=== PATIENT | female | born 1995 | race Caucasian/White ===

== ENCOUNTER 2017-08-10 15:24 | Inpatient (IN) | payer OTHER ==
[~2017-08-10] VITALS: Ht 167.6 cm; Wt 57.8 kg
[2017-08-10 16:27] LABS: HEMATOCRIT 43.1 % (37-47); HEMOGLOBIN 15.3 g/dL (12.0-16.0); MEAN CELL VOLUME 86.5 fL (80-100); MEAN CORPUSCULAR HEMOGLOBIN 30.7 pg (25-34); MEAN CORPUSCULAR HGB CONC 35.5 g/dl (32-36); MEAN PLATELET VOLUME 9.7 fL (7.4-10.4); PLATELET COUNT 333 K/uL (130-400); RED CELL DISTRIBUTION WIDTH CV 12.3 % (11.5-14.5); RED CELL DISTRIBUTION WIDTH SD 39.4 fL (36.4-46.3); WHITE BLOOD COUNT 12.66 K/uL (4.8-10.8)
--- NOTE | 2017-08-10 16:39 | Pharmacy Progress Note ---
ED Pharmacist Progress Note Date of Service: Aug 10, 2017. Spoke with poison control regarding patient- ingestion of estimated maximum 188 tablets of 200 mg Ibuprofen and 1/2 a bottle of unknown size nyquil. Estimated patient weight at time was 60kg. Poison control recommendations/possible reactions included: Ibuprofen: GI upset/bleeding, seizure, coma, hypotension, metabolic acidosis. Treatment is supportive care with benzodiazepines for seizure. Nyquil adverse effects include anticholinergic effects: agitation/ confusion/tremors/flushing/dry mucus membranes, tachycardia,sedation. Recommended benzodiazepines for tachycardia. Recommended ASA/Tylenol/Alcohol level at 1800- 4 hours post ingestion and EKG. Talked with patient who did not know the bottle size, said it might be "medium" and wasn't huge. Estimate maximum consumption of 12 oz. bottle of nyquil would be 7.67 gm of acetaminophen, 6 oz. would be 3.835 gm.
[2017-08-10] MEDS ORDERED: IBUP-1050 PO (16:45)
[2017-08-10] MEDS ORDERED: MULT-513 PO (16:45)
[2017-08-10 16:47] LABS: ALBUMIN 4.4 gm/dl (3.4-5.0); CALCIUM 9.1 mg/dl (8.5-10.1); CREATININE 1.01 mg/dl (0.60-1.20)
[2017-08-10 16:58] LABS: TOTAL PROTEIN 7.8 gm/dl (6.4-8.2)
[2017-08-10] MEDS ORDERED: LORAZEPAM 2 MG/ML 1 ML VIAL IV STA (17:54)
[2017-08-10] MEDS ORDERED: SODIUM CHLORIDE 0.9% 1000ML 1,000 ML IV ONE (18:00)
[2017-08-10] MEDS ORDERED: ONDANSETRON INJ 2 MG/ML 2 ML VIAL IV PRN (18:00)
[2017-08-10] MEDS ORDERED: POTASSIUM CHLORIDE 20 MEQ TABCR PO STA (18:07)
[2017-08-10] MEDS ORDERED: PATIENT'S ALLERGY INFO NEEDS ENTERED SCH (18:15)
--- NOTE | 2017-08-10 18:25 | History and Physical ---
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 She reports taking ibuprofen and Nyquil. 188 tablets of 200mg ibuprofen and half a bottle of Nyquil. She recently had an medical on /Thursday and was feeling down about that. She has also been having some relationship problems. She was alone when she took the overdose in her apartment. She called her boyfriend's flat mate who alerted the boyfriend who went round her apartment and called the client coordinator. She admits trying to kill herself. She regrets her decision and doesn't think she will do it again. She reports currently feeling not quite her normal self and agitated. Past Medical/Surgical History Medical Problems: No past medical history Social History Smoking Status: Never Smoker Smokeless Tobacco Use: No Alcohol Use: heavy (3-5 times/week, approximately 6 pack/beer each time) Drug Use: marijuana (smokes 2/week) Marital Status: single Housing status: lives with friends Occupational Status: [employer] Allergies Coded Allergies: No Known Allergies (Unverified , 08/10/17) Home Medications Scheduled Ibuprofen (Advil), 400 MG PO PRN Multivitamins/Minerals (Mvi With Minerals), 1 TAB PO DAILY Review of Systems All systems reviewed and otherwise negative other than HPI Physical Exam Vital Signs Date Time Temp Pulse Resp B/P (MAP) Pulse Ox O2 Delivery O2 Flow Rate FiO2 08/10/17 17:30 126 22 134/72 97 08/10/17 17:01 130 20 128/78 98 Room Air 08/10/17 16:30 110 21 122/78 98 08/10/17 16:13 131 08/10/17 16:07 125 20 134/78 08/10/17 15:25 37.1 114 20 127/85 98 Room Air General Appearance: WD/WN, no apparent distress Head: normocephalic, atraumatic Eyes: normal inspection, PERRL, EOMI ENT: + pertinent finding (dry mucus membranes) Neck: no adenopathy, trachea midline Respiratory/Chest: lungs clear, normal breath sounds, no respiratory distress, no accessory muscle use Cardiovascular: no murmur, + tachycardia (regular rhythm) Abdomen/GI: normal bowel sounds, non tender, soft Extremities/Musculoskelatal: normal capillary refill, no pedal edema 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, no motor/sensory deficits, alert, oriented x 3, + depressed affect Skin: normal color, warm/dry, no rash Diagnostics Laboratory Results Results Past 24 Hours Test 08/10/17 16:06 08/10/17 16:08 08/10/17 17:49 Range/Units Urine Color YELLOW Urine Appearance CLEAR CLEAR Urine pH 6.5 4.5-7.5 Urine Specific [place] 1.008 1.000-1.030 Urine Protein NEG NEG Urine Glucose (UA) NEG NEG Urine Ketones NEG NEG Urine Occult Blood NEG NEG Urine Nitrite NEG NEG Urine Bilirubin NEG NEG Urine Urobilinogen NEG NEG Urine Leukocyte Esterase NEG NEG Urine Test POS NEG White Blood Count 12.66 4.8-10.8 K/uL Red Blood Count 4.98 4.2-5.4 M/uL Hemoglobin 15.3 12.0-16.0 g/dL Hematocrit 43.1 37-47 % Mean Corpuscular Volume 86.5 80-100 fL Mean Corpuscular Hemoglobin 30.7 25-34 pg Mean Corpuscular Hemoglobin Concent 35.5 32-36 g/dl RDW Standard Deviation 39.4 36.4-46.3 fL RDW Coefficient of Variation 12.3 11.5-14.5 % Platelet Count 333 130-400 K/uL Mean Platelet Volume 9.7 7.4-10.4 fL Sodium Level 140 136-145 mmol/L Potassium Level 3.0 3.5-5.1 mmol/L Chloride Level 108 98-107 mmol/L Carbon Dioxide Level 23 21-32 mmol/L Anion Gap 10.0 3-11 mmol/L Blood Urea Nitrogen 9 7-18 mg/dl Creatinine 1.01 0.60-1.20 mg/dl Est Creatinine Clear Calc Drug Dose 78.4 ml/min Estimated GFR () 92.2 Estimated GFR (Non- 79.5 BUN/Creatinine Ratio 8.9 10-20 Random Glucose 81 70-99 mg/dl Calcium Level 9.1 8.5-10.1 mg/dl Total Bilirubin 0.6 0.2-1 mg/dl Direct Bilirubin 0.1 0-0.2 mg/dl Aspartate Amino Transf (AST/SGOT) 14 15-37 U/L Alanine Aminotransferase (ALT/SGPT) 15 12-78 U/L Alkaline Phosphatase 40 45-117 U/L Total Protein 7.8 6.4-8.2 gm/dl Albumin 4.4 3.4-5.0 gm/dl Thyroid Stimulating Hormone (TSH) 1.130 0.300-4.500 uIu/ml Free Thyroxine 1.22 0.80-1.60 ng/dl Salicylates Level < 1.7 2.8-20 mg/dl Acetaminophen Level 57 10-30 ug/ml Ethyl Alcohol mg/dL 54.7 0-3 mg/dl EKG Sinus tachycardia T wave flattening - inferior and anterolateral leads QTc normal No previous ECGs available Impression Assessment and Plan 22 year old college student presents to the ER with multi drug overdose Multidrug overdose - no underlying mental illness known - consult psychiatry Ibuprofen overdose - Assess for GI upset/bleeding, seizure, coma, hypotension, metabolic acidosis. - Treatment is supportive care with benzodiazepines for seizure as per poison control Dextromethorphan, doxylamine and pseudoephedrine overdose (Nyquil) - anticholinergic effects: agitation/confusion/tremors/flushing/dry mucus membranes, tachycardia,sedation - Recommended benzodiazepines for tachycardia. Acetaminophen overdose - retake level now (4 hours) - 54, reliable history with ingestion at 13:50-14: 00 - called poison control with 4 hour acetaminophen level - no need to recheck, not for NAC Recent 8 week medical with mifepristone and misoprostol - US pelvis to check for retained products - serum quant B-HCG VTE Prophylaxis - LINDA - no chemical prophylaxis as very low risk I personally interviewed and examined the patient. I agree with history of present illness and physical exam mentioned above, I also performed my own history taking and examination. Past medical history and review of system has been obtained by myself I reviewed all pertinent labs and studies Reviewed current medications I discussed and formulated of the assessment and plan mentioned above. Please refer to the Summary mentioned below. 22 years old female with no previous past medical history. Has been having a lot of social problems lately. Broke up with her boyfriend and had an . Also some other problems with family. Today she decided to end her life. She ingested large amount of ibuprofen, and drank half a bottle of NyQuil. Also took some vodka as per patient she took a very small amount of vodka. Her ex- boyfriend came to her house and she admitted to him that she did that. He called 911 and brought her to the ED. Currently she had no thoughts to hurt herself or others she regrets what she did No previous history of psychiatric illness no previous suicide attempts Review of system is completely negative and physical exam is also was normal As per poison control recommendation patient does not require N-acetylcysteine as NyQuil does not have enough Tylenol to cause significant toxicity, Tylenol level in her blood was 57, repeat Tylenol level 2 hours later was 54 which is trending down. She was started on PPI and IV fluid hydration. Benzodiazepines for her tachycardia/histamine jackelyn toxicity. QTc prolongation will be monitored. Psychiatric consulted. Placed on telemetry and psychiatry precautions General Appearance: not in acute distress Eyes: normal Sclerae, extraocular muscle intact ENT: hearing grossly normal Neck: supple Respiratory/Chest: normal air entry bilateral ,no respiratory distress, no accessory muscle use Cardiovascular: regular rate, rhythm, no murmur Abdomen: non tender, soft, no masses Extremities: no edema musculoskeletal: no significant swelling or inflammation in any joint Neurologic/Psychiatric: Awake alert oriented times place and person moves all extremities sensation intact cranial nerves II-12 appear to be intact Skin: normal color, warm/dry, no rash Rosaline Rush MD, [facility] hospitalist group Resuscitation Status Full VTE Prophylaxis Will order VTE Prophylaxis: Yes Resident Tracking Resident Involvement: Resident Care Provided Care Provided: Adult Hospital Medicine
[2017-08-10] MEDS ORDERED: PANTOprazole INJ 40 MG in SYRINGE 0 ML IV ONE (19:45)
--- NOTE | 2017-08-10 19:47 | EMERGENCY ROOM VISIT NOTE ---
History Report prepared by Víctor: Pardeep Quiroz Under the Supervision of: Dr. Isaac Jack M.D. First contact with patient: 15:26 Stated Complaint: OVERDOSE History of Present Illness The patient is a 22 year old female who presents to the Emergency Room with complaints of a sudden overdose occurring around 1400 today. Per the nursing staff, the patient took around 188 pills of ibuprofen, and the patient states that she additionally took a little less than half of a bottle of NyQuil. She states the ibuprofen bottle was almost full and there are only 12 tablets left of the 200 hour in the bottle. The patient states that she was doing this to kill herself. She states that she had an three days ago, and she was feeling depressed about this. The patient called her boyfriend who then called the local telephone operator. The reports that she has no history of anxiety or depression, and she is not currently on any medications. She has never tried to hurt herself in the past. The patient denies any abdominal pain, nausea, and dizziness. She states that her vaginal bleeding stopped yesterday, and she is not having any pelvic pain. The patient denies any recent fevers. Source of History: patient, nursing staff Onset: 1400 Position: other (global) Quality: other (overdose) Timing: other (sudden) Associated Symptoms: No fevers, No nausea, No abdominal pain Review of Systems See HPI for pertinent positives & negatives. A total of 10 systems reviewed and were otherwise negative. Past Medical & Surgical Medical Problems: (1) Acetaminophen overdose (2) Diphenhydramine overdose (3) Ibuprofen overdose Social History Marital Status: in relationship Occupation Status: [employer] Current/Historical Medications Scheduled Ibuprofen (Advil), 400 MG PO PRN Multivitamins/Minerals (Mvi With Minerals), 1 TAB PO DAILY Physical Exam Vital Signs Date Time Temp Pulse Resp B/P (MAP) Pulse Ox O2 Delivery O2 Flow Rate FiO2 08/10/17 19:13 124 20 119/73 95 08/10/17 17:30 126 22 134/72 97 08/10/17 17:01 130 20 128/78 98 Room Air 08/10/17 16:30 110 21 122/78 98 08/10/17 16:13 131 08/10/17 16:07 125 20 134/78 08/10/17 15:25 37.1 114 20 127/85 98 Room Air Physical Exam Constitutional: Vital signs reviewed. Eyes: Pupils are equal round reactive to light. Conjunctiva are noninjected. ENT: Pharynx is clear without erythema or exudate. Mucous membranes are moist. Neck supple without meningeal signs. Respiratory: Clear to auscultation bilaterally. Breath sounds are equal bilaterally. Cardiovascular: Slightly tachycardic rate and regular rhythm. No rubs or gallops. GI: Soft, nondistended and nontender. Bowel sounds are present. Musculoskeletal: No peripheral edema. No lacerations to the wrists. Integumentary: No cyanosis. Neurological: The patient is awake and alert. No focal deficits. Psychiatric: Guarded affect. Anxious appearing. Medical Decision & Procedures Laboratory Results 08/10/17 16:08 08/10/17 16:08 Test 08/10/17 16:06 08/10/17 16:08 08/10/17 17:49 Urine Color YELLOW Urine Appearance CLEAR (CLEAR) Urine pH 6.5 (4.5-7.5) Urine Specific [place] 1.008 (1.000-1.030) Urine Protein NEG (NEG) Urine Glucose (UA) NEG (NEG) Urine Ketones NEG (NEG) Urine Occult Blood NEG (NEG) Urine Nitrite NEG (NEG) Urine Bilirubin NEG (NEG) Urine Urobilinogen NEG (NEG) Urine Leukocyte Esterase NEG (NEG) Urine Test POS (NEG) Urine Opiates Screen NEG (NEG) Urine Methadone, Qualitative NEG (NEG) Urine Barbiturates NEG (NEG) Urine Phencyclidine (PCP) Level NEG (NEG) Ur Amphetamine/Methamphetamine NEG (NEG) MDMA (Ecstasy) Screen NEG (NEG) Urine Benzodiazepines Screen NEG (NEG) Urine Cocaine Metabolite NEG (NEG) Urine Marijuana (THC) NEG (NEG) Red Blood Count 4.98 M/uL (4.2-5.4) Mean Corpuscular Volume 86.5 fL (80-100) Mean Corpuscular Hemoglobin 30.7 pg (25-34) Mean Corpuscular Hemoglobin Concent 35.5 g/dl (32-36) RDW Standard Deviation 39.4 fL (36.4-46.3) RDW Coefficient of Variation 12.3 % (11.5-14.5) Mean Platelet Volume 9.7 fL (7.4-10.4) Anion Gap 10.0 mmol/L (3-11) Est Creatinine Clear Calc Drug Dose 78.4 ml/min Estimated GFR () 92.2 Estimated GFR (Non- 79.5 BUN/Creatinine Ratio 8.9 (10-20) Calcium Level 9.1 mg/dl (8.5-10.1) Total Bilirubin 0.6 mg/dl (0.2-1) Direct Bilirubin 0.1 mg/dl (0-0.2) Aspartate Amino Transf (AST/SGOT) 14 U/L (15-37) Alanine Aminotransferase (ALT/SGPT) 15 U/L (12-78) Alkaline Phosphatase 40 U/L (45-117) Total Protein 7.8 gm/dl (6.4-8.2) Albumin 4.4 gm/dl (3.4-5.0) Thyroid Stimulating Hormone (TSH) 1.130 uIu/ml (0.300-4.500) Free Thyroxine 1.22 ng/dl (0.80-1.60) Salicylates Level < 1.7 mg/dl (2.8-20) Ethyl Alcohol mg/dL 54.7 mg/dl (0-3) Prothrombin Time 10.7 SECONDS (9.0-12.0) Prothromb Time International Ratio 1.0 (0.9-1.1) Activated Partial Thromboplast Time 22.0 SECONDS (21.0-31.0) Partial Thromboplastin Ratio 0.8 Acetaminophen Level 54 ug/ml (10-30) Laboratory results as reviewed by me. Medications Administered Medications (Trade) Dose Ordered Sig/Jennifer Route Start Time Stop Time Status Last Admin Dose Admin Sodium Chloride 1,000 ml @ 999 mls/hr Q1H1M ONCE IV 08/10/17 18:00 08/10/17 19:00 DC 08/10/17 18:00 999 MLS/HR Lorazepam (Ativan Inj) 1 mg NOW STAT IV 08/10/17 17:54 08/10/17 18:14 DC 08/10/17 17:54 1 MG Potassium Chloride (Klor-Con Tab) 20 meq NOW STAT PO 08/10/17 18:07 08/10/17 18:14 DC 08/10/17 18:07 20 MEQ ECG Per My Interpretation Indication: other (overdose) Rate (beats per minute): 113 Rhythm: sinus tachycardia Findings: other (QRS is 84ms, no QT prolongation, limited interpretation due to motion artifact.) ED Course 1526: The patient was evaluated in room A5. A complete history and physical exam was performed. 1544: The patient's casew was discussed poison control by the ED pharmacist. 1624: I reevaluated the patient, and she is feeling a little sleepy now, and she is still tachycardic. 1713: I spoke with Dr. Daniel JARAMILLO Hospitalist. We discussed the patient and her results. The patient will be further evaluated by the hospitalist. Medical Decision This is a 22-year-old female who presents with an intentional overdose on NyQuil and ibuprofen. I did perform a limited focused review of portions of the patient's old chart on the electronic medical record. The patient has no prior visits. I did evaluate the patient as noted above. IV access was established. The patient was placed on a continuous utility bill complaints investigator. I did order and personally review the patient's 12-lead EKG as described above. There is no evidence of widening of the QRS or prolongation of the QT interval. Urine is positive but the patient just recently had a . I did order and review the patient's blood work as noted in the electronic medical record. Acetaminophen level is elevated at 57. A repeat 4 hour level is coming down. Poison control was consulted. They did recommend observation for potential seizures and other potential adverse effects. No decontamination was indicated or NAC. I did reassess the patient. She is tachycardic and sleepy but otherwise has no complaints. I did recommend hospitalization. I did discuss case with the hospitalist and field nurse case manager. Medication Reconcilliation Current Medication List: was personally reviewed by me Blood Pressure Screening Patient's blood pressure: Elevated blood pressure Blood pressure disposition: Elevated BP felt to be situational Consults Time Called: 1651 Consulting Physician: Dr. Daniel JARAMILLO Hospitalist Returned Call: [address] Daniel JARAMILLO Hospitalist. We discussed the patient and her results. The patient will be further evaluated by the hospitalist. Impression Primary Impression: Intentional drug overdose Additional Impression: Hypokalemia Scribe Attestation The scribe's documentation has been prepared under my direct and personally reviewed by me in its entirety. I confirm that the note above accurately reflects all work, treatment, procedures, and medical decision making performed by me. Departure Information Dispostion Being Evaluated By Hospitalist Problem Qualifiers Primary Impression: Intentional drug overdose Encounter type: initial encounter Qualified Codes: T50.902A - Poisoning by unspecified drugs, medicaments and biological substances, intentional self-harm , initial encounter
[2017-08-10 20:00] VITALS: O2SAT 100
[2017-08-10 20:02] VITALS: BP 119/73; TEMP 37.1; O2SAT 100; Ht 167.6 cm; Wt 57.8 kg
[2017-08-10] MEDS ORDERED: LORAZEPAM 2 MG/ML 1 ML VIAL IV PRN (20:30)
[2017-08-10] MEDS: LACTATED RINGER'S 1000ML 1,000 ML IV SCH (21:12)
[2017-08-10 22:13] LABS: ALBUMIN 3.8 gm/dl (3.4-5.0); CALCIUM 8.1 mg/dl (8.5-10.1); CREATININE 1.06 mg/dl (0.60-1.20); POTASSIUM 4.1 mmol/L (3.5-5.1); TOTAL PROTEIN 6.8 gm/dl (6.4-8.2)
[2017-08-10 23:39] VITALS: BP 117/76; PULSE 104; TEMP 37.1; O2SAT 99
[2017-08-11 03:48] VITALS: BP 110/73; PULSE 96; TEMP 36.9; O2SAT 98
[2017-08-11] MEDS: LACTATED RINGER'S 1000ML 1,000 ML IV SCH ×3 (05:27→19:44)
[2017-08-11 06:24] LABS: BASO % 0.3 %; BASO ABS # 0.02 K/uL (0-0.2); EOS % 0.4 %; EOS ABS # 0.03 K/uL (0-0.5); HEMATOCRIT 38.5 % (37-47); HEMOGLOBIN 13.1 g/dL (12.0-16.0); IG# 0.02 K/uL (0.00-0.02); LYMPH % 26.8 %; LYMPH ABS # 1.91 K/uL (1.2-3.4); MEAN CELL VOLUME 87.7 fL (80-100); MEAN CORPUSCULAR HEMOGLOBIN 29.8 pg (25-34); MEAN PLATELET VOLUME 9.7 fL (7.4-10.4); MONO ABS # 0.57 K/uL (0.11-0.59); NEUT % 64.2 %; NEUT ABS # 4.58 K/uL (1.4-6.5); PLATELET COUNT 276 K/uL (130-400); RED CELL DISTRIBUTION WIDTH CV 12.6 % (11.5-14.5); RED CELL DISTRIBUTION WIDTH SD 40.6 fL (36.4-46.3); WHITE BLOOD COUNT 7.13 K/uL (4.8-10.8)
[2017-08-11 07:01] VITALS: BP 124/81; PULSE 91; TEMP 36.8; O2SAT 100
[2017-08-11 07:05] LABS: ALBUMIN 3.2 gm/dl (3.4-5.0); CALCIUM 8.3 mg/dl (8.5-10.1); CREATININE 1.09 mg/dl (0.60-1.20); POTASSIUM 3.6 mmol/L (3.5-5.1)
[2017-08-11 07:08] LABS: TOTAL PROTEIN 6.2 gm/dl (6.4-8.2)
--- NOTE | 2017-08-11 07:08 | DIAGNOSTIC IMAGING REPORT ---
ULTRASOUND OF THE PELVIS CLINICAL HISTORY: Recent . Clinical concern for retained products of conception. COMPARISON STUDY: No priors. TECHNIQUE: Real-time, grayscale, and color flow sonography of the pelvis is performed both transabdominally and endovaginally. Images are reviewed in the transverse and longitudinal planes. FINDINGS: Uterus: The retroverted uterus is normal in size and echotexture, measuring 9.9 x 3.7 x 6.7 cm. Endometrium: The endometrium appears thickened and heterogeneous, measuring up to 1.8 cm in thickness. There is internal flow identified within portions of the endometrial canal seen on color imaging. Ovaries: The ovaries are normal in size and morphology. The right ovary measures 4.3 x 1.6 x 2.0 cm and the left ovary measures 3.2 x 1.0 x 1.4 cm. Bilateral follicles are noted. A 2.1 cm complex structure within the right ovary likely represent a corpus luteum. Normal Doppler waveforms are shown within both ovaries. Pelvis: There is no free fluid in the cul-de-sac. No concerning adnexal lesion is seen. IMPRESSION: 1. The endometrial stripe appears thickened and heterogeneous with foci of increased blood flow. Retained products of conception is not excluded. 2. The ovaries are normal as visualized noting a probable corpus luteum on the right. Ectopic is considered unlikely but would be impossible to exclude. Correlation with serum beta-hCG levels as well as any prior ultrasound is recommended. Electronically signed by: Doroteo Beasley M.D. 08/11/2017 7:07 AM Dictated Date/Time: 08/11/2017 7:04 AM
[2017-08-11] MEDS ORDERED: PANTOprazole INJ 40 MG in SYRINGE 0 ML IV SCH (11:00)
[2017-08-11 11:01] VITALS: BP 124/80; PULSE 88; TEMP 37.2; O2SAT 100
--- NOTE | 2017-08-11 11:23 | Medical Consult ---
Consultation Date of Consultation: Aug 11, 2017. Attending Physician: Rosaline Contreras MD Reason for Consultation: Abnormal ultrasound History of Present Illness Patient is a 22-year-old G0 who was admitted yesterday after an ibuprofen and NyQuil overdose. I was asked to see her because she had a medical termination of on of last week. Following the termination, she felt very guilty about this and attempted suicide by overdosing on medications. She apparently has no psychiatric history. Her last menstrual period was 06/09/2017. [facility] in [place] on of last week, was started on medical induction, and passed products of conception on Thursday. She passed a large amount of clots and tissue, and then her bleeding slowed down. It is minimal at this time. She is not experiencing any pain or cramping. Denies fever/chills/nausea/ vomiting. She underwent ultrasound last night, that showed thickened endometrial lining, 1.8 cm. There is a right corpus luteal cyst. Beta hCG on 08/10 was 8480, repeat 12 hours later was 5252. Past Medical/Surgical History Medical Problems: (1) Hypokalemia Status: Acute (2) Intentional drug overdose Status: Acute Social History Smoking Status: Light Tobacco Smoker Smokeless Tobacco Use: No Alcohol Use: heavy (3-5 times/week, approximately 6 pack/beer each time) Drug Use: marijuana (smokes 2/week) Marital Status: in relationship Occupation Status: [employer] student Allergies Coded Allergies: No Known Allergies (Unverified , 08/10/17) Current Inpatient Medications Current Inpatient Medications Medications (Trade) Dose Ordered Sig/Jennifer Route Start Time Stop Time Status Last Admin Dose Admin Ondansetron HCl (Zofran Inj) 4 mg Q6H PRN IV 08/10/17 18:00 09/09/17 17:59 Pantoprazole Sodium 40 mg/ Syringe 10 ml @ 5 mls/min DAILY@11 IV 08/11/17 11:00 09/10/17 10:59 Lorazepam (Ativan Inj) 1 mg Q4H PRN IV 08/10/17 20:30 09/09/17 20:29 08/10/17 21:11 1 MG Lactated Ringer's 1,000 ml @ 125 mls/hr Q8H IV 08/10/17 20:45 09/09/17 20:44 08/11/17 05:27 125 MLS/HR Review of Systems Constitutional: No problem reported Eyes: No problem reported ENT: No problem reported Respiratory: No problem reported Cardiovascular: No problem reported Abdomen: No problem reported Genitourinary - Female: + vaginal bleeding (minimal) Neurologic: No problem reported Psychiatric: + depression symptoms Physical Exam Date Time Temp Pulse Resp B/P (MAP) Pulse Ox O2 Delivery O2 Flow Rate FiO2 08/11/17 11:01 37.2 88 18 124/80 (95) 100 Room Air 08/11/17 08:00 Room Air 08/11/17 07:01 36.8 91 16 124/81 (95) 100 Room Air 08/11/17 04:00 Room Air 08/11/17 03:48 36.9 96 14 110/73 (85) 98 Room Air 08/11/17 00:01 Room Air 08/10/17 23:39 37.1 104 16 117/76 (90) 99 Room Air 08/10/17 20:02 37.1 20 119/73 100 Room Air 08/10/17 20:00 100 Room Air 08/10/17 19:13 124 20 119/73 95 08/10/17 17:30 126 22 134/72 97 08/10/17 17:01 130 20 128/78 98 Room Air 08/10/17 16:30 110 21 122/78 98 08/10/17 16:13 131 08/10/17 16:07 125 20 134/78 08/10/17 15:25 37.1 114 20 127/85 98 Room Air General Appearance: no apparent distress Respiratory/Chest: no respiratory distress Abdomen/GI: non tender, soft Neurologic/Psych: alert, oriented x 3 Laboratory Results Last 24 Hours Test 08/10/17 16:06 08/10/17 16:08 08/10/17 17:49 08/10/17 21:24 Urine Color YELLOW Urine Appearance CLEAR Urine pH 6.5 Urine Specific [place] 1.008 Urine Protein NEG Urine Glucose (UA) NEG Urine Ketones NEG Urine Occult Blood NEG Urine Nitrite NEG Urine Bilirubin NEG Urine Urobilinogen NEG Urine Leukocyte Esterase NEG Urine Test POS Urine Opiates Screen NEG Urine Methadone, Qualitative NEG Urine Barbiturates NEG Urine Phencyclidine (PCP) Level NEG Ur Amphetamine/Methamphetamine NEG MDMA (Ecstasy) Screen NEG Urine Benzodiazepines Screen NEG Urine Cocaine Metabolite NEG Urine Marijuana (THC) NEG White Blood Count 12.66 K/uL Red Blood Count 4.98 M/uL Hemoglobin 15.3 g/dL Hematocrit 43.1 % Mean Corpuscular Volume 86.5 fL Mean Corpuscular Hemoglobin 30.7 pg Mean Corpuscular Hemoglobin Concent 35.5 g/dl RDW Standard Deviation 39.4 fL RDW Coefficient of Variation 12.3 % Platelet Count 333 K/uL Mean Platelet Volume 9.7 fL Sodium Level 140 mmol/L 143 mmol/L Potassium Level 3.0 mmol/L 4.1 mmol/L Chloride Level 108 mmol/L 112 mmol/L Carbon Dioxide Level 23 mmol/L 20 mmol/L Anion Gap 10.0 mmol/L 11.0 mmol/L Blood Urea Nitrogen 9 mg/dl 8 mg/dl Creatinine 1.01 mg/dl 1.06 mg/dl Est Creatinine Clear Calc Drug Dose 78.4 ml/min 72.4 ml/min Estimated GFR () 92.2 86.9 Estimated GFR (Non- 79.5 75.0 BUN/Creatinine Ratio 8.9 7.3 Random Glucose 81 mg/dl 87 mg/dl Calcium Level 9.1 mg/dl 8.1 mg/dl Total Bilirubin 0.6 mg/dl 0.2 mg/dl Direct Bilirubin 0.1 mg/dl Aspartate Amino Transf (AST/SGOT) 14 U/L 13 U/L Alanine Aminotransferase (ALT/SGPT) 15 U/L 13 U/L Alkaline Phosphatase 40 U/L 35 U/L Total Protein 7.8 gm/dl 6.8 gm/dl Albumin 4.4 gm/dl 3.8 gm/dl Thyroid Stimulating Hormone (TSH) 1.130 uIu/ml Free Thyroxine 1.22 ng/dl Human Chorionic Gonadotropin, Quant 8480 mIU/mL Salicylates Level < 1.7 mg/dl Acetaminophen Level 57 ug/ml 54 ug/ml Ethyl Alcohol mg/dL 54.7 mg/dl Prothrombin Time 10.7 SECONDS Prothromb Time International Ratio 1.0 Activated Partial Thromboplast Time 22.0 SECONDS Partial Thromboplastin Ratio 0.8 Magnesium Level 2.0 mg/dl Globulin 3.0 gm/dl Albumin/Globulin Ratio 1.3 Test 4/24/18 05:53 08/11/17 05:54 Acetaminophen Level 15 ug/ml White Blood Count 7.13 K/uL Red Blood Count 4.39 M/uL Hemoglobin 13.1 g/dL Hematocrit 38.5 % Mean Corpuscular Volume 87.7 fL Mean Corpuscular Hemoglobin 29.8 pg Mean Corpuscular Hemoglobin Concent 34.0 g/dl Platelet Count 276 K/uL Mean Platelet Volume 9.7 fL Neutrophils (%) (Auto) 64.2 % Lymphocytes (%) (Auto) 26.8 % Monocytes (%) (Auto) 8.0 % Eosinophils (%) (Auto) 0.4 % Basophils (%) (Auto) 0.3 % Neutrophils # (Auto) 4.58 K/uL Lymphocytes # (Auto) 1.91 K/uL Monocytes # (Auto) 0.57 K/uL Eosinophils # (Auto) 0.03 K/uL Basophils # (Auto) 0.02 K/uL RDW Standard Deviation 40.6 fL RDW Coefficient of Variation 12.6 % Immature Granulocyte % (Auto) 0.3 % Immature Granulocyte # (Auto) 0.02 K/uL Sodium Level 141 mmol/L Potassium Level 3.6 mmol/L Chloride Level 112 mmol/L Carbon Dioxide Level 21 mmol/L Anion Gap 8.0 mmol/L Blood Urea Nitrogen 10 mg/dl Creatinine 1.09 mg/dl Est Creatinine Clear Calc Drug Dose 71.1 ml/min Estimated GFR () 84.0 Estimated GFR (Non- 72.5 BUN/Creatinine Ratio 9.5 Random Glucose 79 mg/dl Calcium Level 8.3 mg/dl Magnesium Level 2.3 mg/dl Total Bilirubin 0.4 mg/dl Aspartate Amino Transf (AST/SGOT) 13 U/L Alanine Aminotransferase (ALT/SGPT) 14 U/L Alkaline Phosphatase 31 U/L Total Protein 6.2 gm/dl Albumin 3.2 gm/dl Globulin 3.0 gm/dl Albumin/Globulin Ratio 1.1 Human Chorionic Gonadotropin, Quant 5252 mIU/mL Assessment & Plan A/P patient is a 22-year-old, status post medical termination of . She passed clots and products of conception lot this past Thursday her bleeding has slowed. Findings on ultrasound are consistent with passage of products. Her beta hCG is dropping. The right adnexal cyst is likely a corpus luteum. The patient does not warrant any further gynecologic intervention at this time. We discussed that her next menstrual cycle may be heavy, and I expect her bleeding to gradually slow to a stop. She has [facility], and I encouraged her to attend this appointment. We discussed that if she develops any fever, chills, heavy vaginal bleeding, abdominal pain, she is to report directly to the emergency department. We discussed patient's contraceptive plans, and she already has a prescription for oral control pills from [facility]. She is thinking about getting an IUD in the future. We discussed that I would be happy to see her in the office ([facility]) for gynecologic care, or she can seek care at [facility]. The patient has not yet discussed her and termination with her parents , I encouraged her to do so, as having the support of her family would likely be very helpful for her at this time. She told me that she plans to discuss everything with them soon. 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
--- NOTE | 2017-08-11 12:54 | Family Medicine Progress Note ---
Progress Note Date of Service Aug 11, 2017. Subjective Pt evaluation today including: conversation w/ patient, conversation w/ family , physical exam, chart review, lab review Pain: denies any discomfort PO Intake: tolerating Voiding: no voiding problems This AM pt reports improvement in weakness and dizziness. Reports feeling somewhat tired. Denies any cp, sob, n/v, abdominal pain. No BM yet. Constitutional: No fever Respiratory: No shortness of breath Cardiovascular: No chest pain Abdomen: No pain, No nausea, No vomiting Female : + abnormal vaginal bleeding (spotting post medical last week; denies any cramping), No dysuria Medications Current Inpatient Medications Medications (Trade) Dose Ordered Sig/Jennifer Route Start Time Stop Time Status Last Admin Dose Admin Ondansetron HCl (Zofran Inj) 4 mg Q6H PRN IV 08/10/17 18:00 09/09/17 17:59 Pantoprazole Sodium 40 mg/ Syringe 10 ml @ 5 mls/min DAILY@11 IV 08/11/17 11:00 09/10/17 10:59 08/11/17 11:50 5 MLS/MIN Lorazepam (Ativan Inj) 1 mg Q4H PRN IV 08/10/17 20:30 09/09/17 20:29 08/10/17 21:11 1 MG Lactated Ringer's 1,000 ml @ 125 mls/hr Q8H IV 08/10/17 20:45 09/09/17 20:44 08/11/17 13:15 125 MLS/HR Objective Vital Signs Date Time Temp Pulse Resp B/P (MAP) Pulse Ox O2 Delivery O2 Flow Rate FiO2 08/11/17 12:00 Room Air 08/11/17 11:01 37.2 88 18 124/80 (95) 100 Room Air 08/11/17 08:00 Room Air 08/11/17 07:01 36.8 91 16 124/81 (95) 100 Room Air 08/11/17 04:00 Room Air 08/11/17 03:48 36.9 96 14 110/73 (85) 98 Room Air 08/11/17 00:01 Room Air 08/10/17 23:39 37.1 104 16 117/76 (90) 99 Room Air 08/10/17 20:02 37.1 20 119/73 100 Room Air 08/10/17 20:00 100 Room Air 08/10/17 19:13 124 20 119/73 95 08/10/17 17:30 126 22 134/72 97 08/10/17 17:01 130 20 128/78 98 Room Air 08/10/17 16:30 110 21 122/78 98 08/10/17 16:13 131 08/10/17 16:07 125 20 134/78 Physical Exam General Appearance: no apparent distress Eyes: normal inspection ENT: + pertinent finding (somewhat dry MM) Neck: supple Respiratory/Chest: lungs clear, normal breath sounds Cardiovascular: + tachycardia, + pertinent finding (regular rhythm; cap refill < 2 sec) Abdomen: normal bowel sounds, soft, + tenderness (mild suprapubic TTP) Extremities: non-tender, no pedal edema Neurologic/Psychiatric: alert, oriented x 3, + depressed affect Skin: warm/dry Laboratory Results 08/11/17 05:54 Red Blood Count 4.39, Mean Corpuscular Volume 87.7, Mean Corpuscular Hemoglobin 29.8, Mean Corpuscular Hemoglobin Concent 34.0, Mean Platelet Volume 9.7, Neutrophils (%) (Auto) 64.2, Lymphocytes (%) (Auto) 26.8, Monocytes (%) (Auto) 8.0, Eosinophils (%) (Auto) 0.4, Basophils (%) (Auto) 0.3, Neutrophils # (Auto) 4.58, Lymphocytes # (Auto) 1.91, Monocytes # (Auto) 0.57, Eosinophils # (Auto) 0.03, Basophils # (Auto) 0.02 08/11/17 05:54 Test 08/10/17 16:06 08/10/17 16:08 08/10/17 17:49 08/11/17 05:53 Urine Color YELLOW Urine Appearance CLEAR (CLEAR) Urine pH 6.5 (4.5-7.5) Urine Specific [place] 1.008 (1.000-1.030) Urine Protein NEG (NEG) Urine Glucose (UA) NEG (NEG) Urine Ketones NEG (NEG) Urine Occult Blood NEG (NEG) Urine Nitrite NEG (NEG) Urine Bilirubin NEG (NEG) Urine Urobilinogen NEG (NEG) Urine Leukocyte Esterase NEG (NEG) Urine Test POS (NEG) Urine Opiates Screen NEG (NEG) Urine Methadone, Qualitative NEG (NEG) Urine Barbiturates NEG (NEG) Urine Phencyclidine (PCP) Level NEG (NEG) Ur Amphetamine/Methamphetamine NEG (NEG) MDMA (Ecstasy) Screen NEG (NEG) Urine Benzodiazepines Screen NEG (NEG) Urine Cocaine Metabolite NEG (NEG) Urine Marijuana (THC) NEG (NEG) Direct Bilirubin 0.1 mg/dl (0-0.2) Thyroid Stimulating Hormone (TSH) 1.130 uIu/ml (0.300-4.500) Free Thyroxine 1.22 ng/dl (0.80-1.60) Salicylates Level < 1.7 mg/dl (2.8-20) Ethyl Alcohol mg/dL 54.7 mg/dl (0-3) Prothrombin Time 10.7 SECONDS (9.0-12.0) Prothromb Time International Ratio 1.0 (0.9-1.1) Activated Partial Thromboplast Time 22.0 SECONDS (21.0-31.0) Partial Thromboplastin Ratio 0.8 Acetaminophen Level 15 ug/ml (10-30) Test 08/11/17 05:54 White Blood Count 7.13 K/uL (4.8-10.8) Red Blood Count 4.39 M/uL (4.2-5.4) Hemoglobin 13.1 g/dL (12.0-16.0) Hematocrit 38.5 % (37-47) Mean Corpuscular Volume 87.7 fL (80-100) Mean Corpuscular Hemoglobin 29.8 pg (25-34) Mean Corpuscular Hemoglobin Concent 34.0 g/dl (32-36) Platelet Count 276 K/uL (130-400) Mean Platelet Volume 9.7 fL (7.4-10.4) Neutrophils (%) (Auto) 64.2 % Lymphocytes (%) (Auto) 26.8 % Monocytes (%) (Auto) 8.0 % Eosinophils (%) (Auto) 0.4 % Basophils (%) (Auto) 0.3 % Neutrophils # (Auto) 4.58 K/uL (1.4-6.5) Lymphocytes # (Auto) 1.91 K/uL (1.2-3.4) Monocytes # (Auto) 0.57 K/uL (0.11-0.59) Eosinophils # (Auto) 0.03 K/uL (0-0.5) Basophils # (Auto) 0.02 K/uL (0-0.2) RDW Standard Deviation 40.6 fL (36.4-46.3) RDW Coefficient of Variation 12.6 % (11.5-14.5) Immature Granulocyte % (Auto) 0.3 % Immature Granulocyte # (Auto) 0.02 K/uL (0.00-0.02) Anion Gap 8.0 mmol/L (3-11) Est Creatinine Clear Calc Drug Dose 71.1 ml/min Estimated GFR () 84.0 Estimated GFR (Non- 72.5 BUN/Creatinine Ratio 9.5 (10-20) Calcium Level 8.3 mg/dl (8.5-10.1) Magnesium Level 2.3 mg/dl (1.8-2.4) Total Bilirubin 0.4 mg/dl (0.2-1) Aspartate Amino Transf (AST/SGOT) 13 U/L (15-37) Alanine Aminotransferase (ALT/SGPT) 14 U/L (12-78) Alkaline Phosphatase 31 U/L (45-117) Total Protein 6.2 gm/dl (6.4-8.2) Albumin 3.2 gm/dl (3.4-5.0) Globulin 3.0 gm/dl (2.5-4.0) Albumin/Globulin Ratio 1.1 (0.9-2) Human Chorionic Gonadotropin, Quant 5252 mIU/mL Assessment and Plan 22 year old healthy [facility] jany admitted for overdose on ibuprofen and Nyquil in a suicidal attempt post relationship problems and medical . NOW with occasional tachycardia but sinus rhythm. No concern for GI symptoms, seizures/AMS at this time. Observing and providing supportive care; pending inpatient psychiatric admission. Multidrug overdose (ibuprofen 188 pills of 200mg and half a bottle of nyquil): situational suicidal attempt - no underlying mental illness - LR 125 mls/hr - Ativan 1mg PRN for HR > 110/anxiety - Pantoprazole 40mg BID - Zofran 4mg Q6H PRN - Repeat CMP this evening - consulted psychiatry - Dr. Kennedy: given suicide attempt warrants inpatient admission once medically clear Monitoring for Ibuprofen overdose - Assess for GI upset/bleeding, seizure, coma, hypotension, metabolic acidosis. - Treatment is supportive care with benzodiazepines for seizure as per poison control Monitoring for Dextromethorphan, doxylamine and pseudoephedrine overdose (Nyquil ) - anticholinergic effects: agitation/confusion/tremors/flushing/dry mucus membranes, tachycardia,sedation - Recommended benzodiazepines for tachycardia. 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 Edmonds consulted: - no concern for retained products given hx, slowed bleeding and downtrending HCG; [facility] - Pt already started OCP VTE Prophylaxis - LINDA - no chemical prophylaxis as very low risk Resident Physician Supervision Note: I was present with Dr. Busch during the history and exam. I discussed the case with the resident and agree with the findings and plan as documented in the note. Any exceptions or clarifications are listed here: Both parents are present at the time of our visit with the patient. Fortunately, she is without complaints and is hungry. She has met with psychiatry and accepting of inpatient psychiatric admission once medically stable. PLAN 1) Continue IVF overnight and monitor renal function. 2) Increase PPI to BID. 3) Advance diet. 4) Suspect she will me medically stable for psychiatric floor tomorrow. Documented By: Ant Cardona Resident Involvement: Resident Care Provided Care Provided: Adult Hospital Medicine
--- NOTE | 2017-08-11 14:00 | Psychiatric Consultation ---
Consultation Date of Consultation Aug 11, 2017. 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 We are consulted to evaluate depression. Information is gathered from the patient and considered to be reliable. Chief Complaint "I was just overwhelmed. ". History of Present Illness The patient is a 22 yo [employer] jany, with no past psych history, who reports that she has been stressed and depressed for the last several weeks. She had been distressed by a relationship that she was in, trying to give him the message she wanted out. At one point she had a panic attack, which precipitated a break up. Unfortunately days later she found out that she was . She decided to terminate the , which she did on Thursday, and has been feeling "guilty" since then. Yesterday, while walking back to her apartment from class, she was feeling depressed, "alone", and upon getting back to her apartment, too what is described as 188 tabs of ibuprofen with Nyquil. She called her friend, who is the roommate of her ex BF, who then told her ex she was depressed, and he came to her apartment to help. He then aclled 911 when she admitted that she had taken an overdose. Today she is feeling tired. She is able to recognize that she was feeling overwhelmed with her relationship stress and then terminating the . She had not told her parents that she was or that she had an until today. she said that they received the news well, saying they were sad that she had to go through it alone. Griselda reports that prior to learning she was , her mood was fine. Her sleep has been good, at time "too much". Appetite has been "up and down, but weight stable. She endorses chronic anxiety , that she says runs in her family. She has only had one panic attack in gher life. She denies self injurious behaviors. She denies aud/vis hallucinations. Past Psychiatric History Current OP Treatment: no current treatment Prior OP Treatment: no prior treatment Prior Psych Hospitalizations: none Access to a Gun: No Suicide Attempts: No Past Medication Trials none Past Medical/Surgical History History of Concussion/Seizure: No (1) No chronic problems Allergies Allergies: Coded Allergies: No Known Allergies (Unverified , 08/10/17) Home Medications Scheduled Ibuprofen (Advil), 400 MG PO PRN Multivitamins/Minerals (Mvi With Minerals), 1 TAB PO DAILY Family History History of Suicide: No History of Substance Abuse: No Psychiatric History: Yes (mother anxiety) Alcohol Use Alcohol Use In Past 12 Months: Yes Will drink on Sat and Sun. Denies any legal problems as a result of drinking. 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 [employer] Childhood: Raised by both parents, has 3 sisters Education: started college Relationship History: never Children: none Legal History: none Psychological Trauma History: Other (recent ) Review of Systems Constitutional: other (fatigue) Eyes: denies: no symptoms, as stated in HPI, eye pain, tearing, itching, redness, discharge, double vision, visual changes, blurred vision, photophobia, other ENT: denies: no symptoms reported, see HPI, ear pain, ear discharge, loss of hearing, tinnitus, nasal pain, nasal congestion, rhinorrhea, epistaxis, sore throat, stidor, throat swelling, mouth pain, mouth swelling, dental pain, gum swelling, other Cardiovascular: denies: no symptoms reported, see HPI, chest pain, chest tightness, chest pressure, diaphoresis, palpitations, syncope, other Respiratory: denies: no symptoms reported, see HPI, cough, orthopnea, short of breath, stridor, wheezing, sputum production, cyanosis, SALAZAR, PND, other Gastrointestinal: denies no symptoms reported, denies see HPI, denies abdominal pain, denies constipation, denies diarrhea, denies nausea, denies vomiting, denies other Genitourinary - Female: denies: no symptoms, see HPI, rash, amenorrhea, dysmenorrhea, menorrhagia, metrorrhagia, , vaginal bleeding, vaginal itching, vaginal discharge, vulvadynia, other Musculoskeletal: denies no symptoms reported, denies see HPI, denies back pain , denies gout, denies joint pain, denies joint swelling, denies muscle pain, denies muscle stiffness, denies neck pain, denies other Integumentary: denies no symptoms reported, denies see HPI, denies change in color, denies change in hair/nails, denies dryness, denies lesions, denies lumps , denies rash, denies other Neurologic: denies: no symptoms, see HPI, headache, numbness, paresthesias, pre -existing deficit, seizure, tingling, tremors, general weakness, tics, focal weakness, vertigo, lethargy, memory loss, dizziness, other Endocrine: denies: no symptoms, as stated in HPI, cold intolerance, heat intolerance, hair changes, goiter, polydipsia, polyuria, skin changes, other Hematologic / Lymphatic: denies: no symptoms, as stated in HPI, abnormal clotting, adenopathy, anemia, easy bleeding, easy bruising, gums bleeding, petechiae, other Examination Vital Signs Vital Signs Past 12 Hours Date Time Temp Pulse Resp B/P (MAP) Pulse Ox O2 Delivery O2 Flow Rate FiO2 08/11/17 12:00 Room Air 08/11/17 11:01 37.2 88 18 124/80 (95) 100 Room Air 08/11/17 08:00 Room Air 08/11/17 07:01 36.8 91 16 124/81 (95) 100 Room Air 08/11/17 04:00 Room Air 08/11/17 03:48 36.9 96 14 110/73 (85) 98 Room Air Laboratory Results Last 24 Hours Test 08/10/17 16:06 08/10/17 16:08 08/10/17 17:49 08/10/17 21:24 Urine Color YELLOW Urine Appearance CLEAR Urine pH 6.5 Urine Specific Kramer 1.008 Urine Protein NEG Urine Glucose (UA) NEG Urine Ketones NEG Urine Occult Blood NEG Urine Nitrite NEG Urine Bilirubin NEG Urine Urobilinogen NEG Urine Leukocyte Esterase NEG Urine Test POS Urine Opiates Screen NEG Urine Methadone, Qualitative NEG Urine Barbiturates NEG Urine Phencyclidine (PCP) Level NEG Ur Amphetamine/Methamphetamine NEG MDMA (Ecstasy) Screen NEG Urine Benzodiazepines Screen NEG Urine Cocaine Metabolite NEG Urine Marijuana (THC) NEG White Blood Count 12.66 K/uL Red Blood Count 4.98 M/uL Hemoglobin 15.3 g/dL Hematocrit 43.1 % Mean Corpuscular Volume 86.5 fL Mean Corpuscular Hemoglobin 30.7 pg Mean Corpuscular Hemoglobin Concent 35.5 g/dl RDW Standard Deviation 39.4 fL RDW Coefficient of Variation 12.3 % Platelet Count 333 K/uL Mean Platelet Volume 9.7 fL Sodium Level 140 mmol/L 143 mmol/L Potassium Level 3.0 mmol/L 4.1 mmol/L Chloride Level 108 mmol/L 112 mmol/L Carbon Dioxide Level 23 mmol/L 20 mmol/L Anion Gap 10.0 mmol/L 11.0 mmol/L Blood Urea Nitrogen 9 mg/dl 8 mg/dl Creatinine 1.01 mg/dl 1.06 mg/dl Est Creatinine Clear Calc Drug Dose 78.4 ml/min 72.4 ml/min Estimated GFR () 92.2 86.9 Estimated GFR (Non- 79.5 75.0 BUN/Creatinine Ratio 8.9 7.3 Random Glucose 81 mg/dl 87 mg/dl Calcium Level 9.1 mg/dl 8.1 mg/dl Total Bilirubin 0.6 mg/dl 0.2 mg/dl Direct Bilirubin 0.1 mg/dl Aspartate Amino Transf (AST/SGOT) 14 U/L 13 U/L Alanine Aminotransferase (ALT/SGPT) 15 U/L 13 U/L Alkaline Phosphatase 40 U/L 35 U/L Total Protein 7.8 gm/dl 6.8 gm/dl Albumin 4.4 gm/dl 3.8 gm/dl Thyroid Stimulating Hormone (TSH) 1.130 uIu/ml Free Thyroxine 1.22 ng/dl Human Chorionic Gonadotropin, Quant 8480 mIU/mL Salicylates Level < 1.7 mg/dl Acetaminophen Level 57 ug/ml 54 ug/ml Ethyl Alcohol mg/dL 54.7 mg/dl Prothrombin Time 10.7 SECONDS Prothromb Time International Ratio 1.0 Activated Partial Thromboplast Time 22.0 SECONDS Partial Thromboplastin Ratio 0.8 Magnesium Level 2.0 mg/dl Globulin 3.0 gm/dl Albumin/Globulin Ratio 1.3 Test 08/11/17 05:53 08/11/17 05:54 Acetaminophen Level 15 ug/ml White Blood Count 7.13 K/uL Red Blood Count 4.39 M/uL Hemoglobin 13.1 g/dL Hematocrit 38.5 % Mean Corpuscular Volume 87.7 fL Mean Corpuscular Hemoglobin 29.8 pg Mean Corpuscular Hemoglobin Concent 34.0 g/dl Platelet Count 276 K/uL Mean Platelet Volume 9.7 fL Neutrophils (%) (Auto) 64.2 % Lymphocytes (%) (Auto) 26.8 % Monocytes (%) (Auto) 8.0 % Eosinophils (%) (Auto) 0.4 % Basophils (%) (Auto) 0.3 % Neutrophils # (Auto) 4.58 K/uL Lymphocytes # (Auto) 1.91 K/uL Monocytes # (Auto) 0.57 K/uL Eosinophils # (Auto) 0.03 K/uL Basophils # (Auto) 0.02 K/uL RDW Standard Deviation 40.6 fL RDW Coefficient of Variation 12.6 % Immature Granulocyte % (Auto) 0.3 % Immature Granulocyte # (Auto) 0.02 K/uL Sodium Level 141 mmol/L Potassium Level 3.6 mmol/L Chloride Level 112 mmol/L Carbon Dioxide Level 21 mmol/L Anion Gap 8.0 mmol/L Blood Urea Nitrogen 10 mg/dl Creatinine 1.09 mg/dl Est Creatinine Clear Calc Drug Dose 71.1 ml/min Estimated GFR () 84.0 Estimated GFR (Non- 72.5 BUN/Creatinine Ratio 9.5 Random Glucose 79 mg/dl Calcium Level 8.3 mg/dl Magnesium Level 2.3 mg/dl Total Bilirubin 0.4 mg/dl Aspartate Amino Transf (AST/SGOT) 13 U/L Alanine Aminotransferase (ALT/SGPT) 14 U/L Alkaline Phosphatase 31 U/L Total Protein 6.2 gm/dl Albumin 3.2 gm/dl Globulin 3.0 gm/dl Albumin/Globulin Ratio 1.1 Human Chorionic Gonadotropin, Quant 5252 mIU/mL Mental Examination During interview pt is: alert and oriented Appearance: appropriately dressed Eye contact is: good Motor behavior is: no abnormal motor movements Speech: normal in rate, rhythm & volume Affect: depressed, flat Mood is: depressed Thought process: goal directed Thought content: reality based without delusions Suicidal thought are: present, Plan: present (overdose) Homicidal thoughts are: denied Hallucinations: denies auditory, denies visual Cognition: memory grossly intact, attention grossly intact, language grossly intact Intelligence estimated to be: average Insight: impaired Judgement: impaired Impression / Recommendations Impression 22 yo woman admitted following a toxic ingestion of ibuprofen and Nyquil in a suicide attempt. Understandably, this is situation driven, but I feel we must take her attempt very seriously, and recommend inpatient treatment. She is willing to receive this treatment voluntarily. We will await medical clearance before beginning the referral process. There is a 302 petitioners statement on the chart if needed. She should not be allowed to leave the hospital AMA. Recommendations (1) mood disorder related to medical condition 08/11 - Recommend inpatient treatment - Await medical clearance - 302 petitioners statement on the chart. She should not be allowed to leave the hospital AMA Dr. Almita Kennedy has personally been involved in the review of this care and development of these recommendations.
[2017-08-11 15:40] VITALS: BP 127/76; PULSE 87; TEMP 37; O2SAT 100
[2017-08-11 18:31] LABS: ALBUMIN 3.1 gm/dl (3.4-5.0); CALCIUM 8.2 mg/dl (8.5-10.1); CREATININE 0.96 mg/dl (0.60-1.20); POTASSIUM 3.5 mmol/L (3.5-5.1)
[2017-08-11 19:33] VITALS: BP 120/80; PULSE 68; TEMP 37.4; O2SAT 98
[2017-08-11] MEDS: PANTOprazole SOD 40 MG TAB PO SCH (19:45)
[2017-08-11 23:23] VITALS: BP 126/79; PULSE 84; TEMP 36.7; TEMP 37; O2SAT 99
[2017-08-12] MEDS: LACTATED RINGER'S 1000ML 1,000 ML IV SCH (03:43)
[2017-08-12 03:46] VITALS: BP 109/72; PULSE 71; TEMP 37; O2SAT 98
[2017-08-12 06:24] LABS: BASO % 0.3 %; BASO ABS # 0.02 K/uL (0-0.2); EOS % 2.2 %; EOS ABS # 0.16 K/uL (0-0.5); HEMATOCRIT 34.5 % (37-47); HEMOGLOBIN 11.5 g/dL (12.0-16.0); IG# 0.01 K/uL (0.00-0.02); LYMPH % 27.6 %; LYMPH ABS # 1.98 K/uL (1.2-3.4); MEAN CORPUSCULAR HEMOGLOBIN 29.3 pg (25-34); MEAN CORPUSCULAR HGB CONC 33.3 g/dl (32-36); MEAN PLATELET VOLUME 9.9 fL (7.4-10.4); MONO % 5.7 %; MONO ABS # 0.41 K/uL (0.11-0.59); NEUT % 64.1 %; NEUT ABS # 4.59 K/uL (1.4-6.5); PLATELET COUNT 247 K/uL (130-400); RED CELL DISTRIBUTION WIDTH CV 12.5 % (11.5-14.5); RED CELL DISTRIBUTION WIDTH SD 40.5 fL (36.4-46.3); WHITE BLOOD COUNT 7.17 K/uL (4.8-10.8)
[2017-08-12 06:56] LABS: ALBUMIN 2.8 gm/dl (3.4-5.0); CALCIUM 8.4 mg/dl (8.5-10.1); CREATININE 0.72 mg/dl (0.60-1.20); POTASSIUM 3.4 mmol/L (3.5-5.1)
[2017-08-12 06:58] LABS: TOTAL PROTEIN 5.5 gm/dl (6.4-8.2)
[2017-08-12 08:11] VITALS: BP 119/81; PULSE 70; TEMP 36.6; O2SAT 96
[2017-08-12] MEDS ORDERED: POTASSIUM CHLORIDE 20 MEQ TABCR PO STA (08:13)
[2017-08-12] MEDS: PANTOprazole SOD 40 MG TAB PO SCH (08:50)
[2017-08-12 12:02] VITALS: BP 114/72; PULSE 76; TEMP 36.5; O2SAT 95
--- NOTE | 2017-08-12 13:03 | Discharge Instructions ---
Discharge Instructions Date of Service Aug 12, 2017. Admission Reason for Admission: Acetaminophen Overdose, Diphenhydramine Overdose Discharge Discharge Diagnosis / Problem: Same Discharge Goals Goal(s): Decrease discomfort, Increase independence, Therapeutic intervention, Specific goals Activity Recommendations Activity Limitations: resume your previous activity Lifting Limitations: none Exercise/Sports Limitations: none Shower/Bathe: no limitations Driving or Machine Use: no limitations Instructions / Follow-Up Instructions / Follow-Up You came to the emergency room because you ingestive high quantities of Ibuprofen and Tylenol. The quantities that you noted are life threatening and required that you be monitored in the hospital. You did mention multiple stressors in your personal life and that you have had thoughts of harming yourself. Our psychiatrist has been involved in you care and together we recommend that you be admitted to our Mental Health Unit for further care. At this point, we are not starting you on any medications. Your treatment plan will be determined by psychiatry. Once you are discharged, it is important that you establish care with a primary care provider you can follow closely with you to follow you for your overall health. It was a pleasure to be involved in your care and we wish you all the best. . Current Hospital Diet Patient's current hospital diet: Regular Diet Discharge Diet Recommended Diet: Regular Diet Pending Studies Studies pending at discharge: no Medical Emergencies . Who to Call and When: Medical Emergencies: If at any time you feel your situation is an emergency, please call 911 immediately. . Non-Emergent Contact Non-Emergency issues call your: Primary Care Provider Call Non-Emergent contact if: you have any medication questions . . "Provider Documentation" section prepared by Luciano Mathew. .
[2017-08-12 13:37] VITALS: BP 114/72; PULSE 76; TEMP 36.5; O2SAT 95
[2017-08-12 16:01] VITALS: BP 119/76; PULSE 91; TEMP 36.7; O2SAT 100
--- NOTE | 2017-08-12 16:37 | Discharge Summary ---
Discharge Summary Date of Service Aug 12, 2017. Discharge Summary Admission Date: Aug 10, 2017 at 17:54 Discharge Date: Aug 12, 2017 Discharge Disposition: Acute care mental health Principal Diagnosis: Intentional Medication overdose Problems/Secondary Diagnoses: Suicidal Ideation Recent medical Procedures: ULTRASOUND OF THE PELVIS CLINICAL HISTORY: Recent . Clinical concern for retained products of conception. COMPARISON STUDY: No priors. TECHNIQUE: Real-time, grayscale, and color flow sonography of the pelvis is performed both transabdominally and endovaginally. Images are reviewed in the transverse and longitudinal planes. FINDINGS: Uterus: The retroverted uterus is normal in size and echotexture, measuring 9.9 x 3.7 x 6.7 cm. Endometrium: The endometrium appears thickened and heterogeneous, measuring up to 1.8 cm in thickness. There is internal flow identified within portions of the endometrial canal seen on color imaging. Ovaries: The ovaries are normal in size and morphology. The right ovary measures 4.3 x 1.6 x 2.0 cm and the left ovary measures 3.2 x 1.0 x 1.4 cm. Bilateral follicles are noted. A 2.1 cm complex structure within the right ovary likely represent a corpus luteum. Normal Doppler waveforms are shown within both ovaries. Pelvis: There is no free fluid in the cul-de-sac. No concerning adnexal lesion is seen. IMPRESSION: 1. The endometrial stripe appears thickened and heterogeneous with foci of increased blood flow. Retained products of conception is not excluded. 2. The ovaries are normal as visualized noting a probable corpus luteum on the right. Ectopic is considered unlikely but would be impossible to exclude. Correlation with serum beta-hCG levels as well as any prior ultrasound is recommended. Consultations: [employer] - Dr. Edmonds Psychiatry - Dr. Kennedy Medication Reconciliation Continued Medications: Multivitamins/Minerals (Mvi With Minerals) Tab 1 TAB PO DAILY, TAB Discontinued Medications: Ibuprofen (Advil) 200 Mg Tab 400 MG PO PRN, TAB Discharge Exam Reports improvement in weakness/dizziness Review of Systems: Constitutional: No fever Respiratory: No shortness of breath Cardiovascular: No chest pain, No palpitations Abdomen: + pain (LUQ and suprapubic), No nausea, No vomiting Genitourinary - Female: No dysuria Physical Exam: General Appearance: no apparent distress Eyes: normal inspection Neck: supple Respiratory/Chest: lungs clear, normal breath sounds Cardiovascular: regular rate, rhythm, no murmur Abdomen / GI: normal bowel sounds, soft, + tenderness (RUQ mild and suprapubic pressure sensation) Extremities: no calf tenderness, no pedal edema Neurologic/Psychiatric: alert, normal mood/affect, oriented x 3, + pertinent finding (denied SI/HI) Skin: warm/dry Hospital Course 22 year old healthy [employer] jany admitted for overdose on ibuprofen and Nyquil in a suicidal attempt post relationship problems and medical . NOW with improved tachycardia and remains in sinus rhythm. No concern for GI symptoms, seizures/AMS at this time. Stable for inpatient psychiatric admission from a medical stand point. Multidrug overdose (ibuprofen 81 pills of 200mg and half a bottle of nyquil): situational suicidal attempt - no underlying mental illness - Labs wnl - Received LR 125 mls/hr during admission - Received Ativan 1mg PRN for HR > 110/anxiety - Received Pantoprazole 40mg BID for GI irritation - Received Zofran 4mg Q6H PRN for nausea - consulted psychiatry - Dr. Kennedy: given suicide attempt warrants inpatient admission once medically clear Acetaminophen overdose - initially 57 (4 hrs post ingestion) and downtrended to 15 - reliable history with ingestion at 13:50-14:00 - called poison control with 4 hour acetaminophen level - no need to recheck, not for NAC Monitored for Ibuprofen overdose symptoms: GI upset/bleeding, seizure, coma, hypotension, metabolic acidosis. - Treatment is supportive care with benzodiazepines for seizure as per poison control (none needed) Monitored for Dextromethorphan, doxylamine and pseudoephedrine overdose (Nyquil ) symptoms - anticholinergic effects: agitation/confusion/tremors/flushing/dry mucus membranes, tachycardia,sedation - Recommended benzodiazepines for tachycardia (received Ativan) Recent 8 week medical with mifepristone and misoprostol - US pelvis: endometrial stripe thickened/heterogenous foci of increased blood flow; normal ovaries with probable corpus luteum on the R ovary (could not rule out retained products) - serum quant B-HCG downtrended from 8480 to 5250 - 12 hours later - [employer] - Dr. Edmonds consulted: - no concern for retained products given hx, slowed bleeding and downtrending HCG; [facility] - Pt already started OCP VTE Prophylaxix: LINDA Resident Physician Supervision Note: I was present with Dr. Busch during the history and exam. I discussed the case with the resident and agree with the findings and plan as documented in the note. Any exceptions or clarifications are listed here: Upon exam today, patient without complaint. She is alert and oriented; excellent eye contact; speech is calm and thoughts coherent. She denies SI, understanding of need and willing to psychiatric inpatient treatment. She is medically cleared for discharge and admission to psychiatric unit. Documented By: Ant Cardona Total Time Spent: Less than 30 minutes This includes examination of the patient, discharge planning, medication reconciliation, and communication with other providers. Discharge Instructions Please refer to the electronic Patient Visit Report (Discharge Instructions) for additional information. Additional Copies To [facility]
== END 2017-08-12 16:53 | DRG 918 ==
LOC: C.EDA 15:26 → C.2T 17:54 → ENRESERV 18:28
PROVIDERS: ADMIT Internal Medicine; ATTEND Family Medicine
DX: T48.3X2A Poisoning by antitussives, intentional self-harm, initial encounter (principal); T39.312A Poisoning by propionic acid derivatives, intentional self-harm, initial encounter; F39 Unspecified mood [affective] disorder; T51.92XA Toxic effect of unspecified alcohol, intentional self-harm, initial encounter; E87.6 Hypokalemia; F17.200 Nicotine dependence, unspecified, uncomplicated; F12.10 Cannabis abuse, uncomplicated; N83.11 Corpus luteum cyst of right ovary; Z98.890 Other specified postprocedural states; Y92.169 Unspecified place in school dormitory as the place of occurrence of the external cause

== ENCOUNTER 2017-08-12 17:00 | Inpatient (IN) | payer OTHER ==
[~2017-08-12] VITALS: Ht 167.6 cm; Wt 57.8 kg
[~2017-08-12 17:00] MED LIST: IBUP-1050 PO; MULT-513 PO
[2017-08-12 17:26] VITALS: BP 126/89; PULSE 87; TEMP 37; Ht 167.6 cm; Wt 57.8 kg
[2017-08-12] MEDS ORDERED: NURSING VERBAL MED ORDER ONE (17:30)
[2017-08-12] MEDS ORDERED: ALUMINUM/MAGNESIUM SUSP 30 ML UDC PO PRN (17:45)
[2017-08-12] MEDS ORDERED: MAGNESIUM HYDROXIDE SUSP 30 ML UDC PO PRN (17:45)
[2017-08-12] MEDS ORDERED: SODIUM CHLORIDE 0.65% NA SOLN 45 ML (OCEAN) PRN (17:45)
[2017-08-12] MEDS ORDERED: hydrOXYzine HCL 25 MG TAB PO PRN ×2 (17:45)
[2017-08-12] MEDS ORDERED: ACETAMINOPHEN 325 MG TAB PO PRN (17:45)
[2017-08-12] MEDS ORDERED: BISMUTH SUBSALICYLATE PER ML OMNICELL CHARGE PO PRN (17:45)
[2017-08-12] MEDS: PANTOprazole SOD 40 MG TAB PO SCH (21:52)
[2017-08-13 06:28] VITALS: BP_SYST 105; BP_SYST 98; BP_DIAS 64; BP_DIAS 66; PULSE 50; PULSE 89; TEMP 36.8
[2017-08-13] MEDS: CEROVITE ADV FORMULA TAB PO SCH (09:11)
[2017-08-13] MEDS: PANTOprazole SOD 40 MG TAB PO SCH ×2 (09:11→21:06)
--- NOTE | 2017-08-13 09:28 | Psychiatric History & Physical ---
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 She was medically cleared for mental health treatment yesterday and admitted voluntarily. Information is gathered from the patient and considered to be reliable. Chief Complaint "I was just overwhelmed. ". History of Present Illness The patient is a 22 yo [employer] jany, with no past psych history, who reports that she has been stressed and depressed for the last several weeks. She had been distressed by a relationship that she was in, trying to give him the message she wanted out. At one point she had a panic attack, which precipitated a break up. Unfortunately days later she found out that she was . She decided to terminate the , which she did on Thursday, and has been feeling "guilty" since then. Yesterday, while walking back to her apartment from class, she was feeling depressed, "alone", and upon getting back to her apartment, too what is described as 188 tabs of ibuprofen with Nyquil. She called her friend, who is the roommate of her ex BF, who then told her ex she was depressed, and he came to her apartment to help. He then called 911 when she admitted that she had taken an overdose. She was admitted medically for 2 days, cleared yesterday for mental health treatment. Since being seen on the consult service, the patient reports that her mood has improved. She has thought about the events leading to her overdose, and she recognizes that she was feeling overwhelmed. She has since told her parents of the and they were very supportive, feeling sad that she had to go through that alone. Griselda reports that prior to learning she was , her mood was fine. Her sleep has been good, at time "too much". Appetite has been "up and down", but weight stable. She endorses chronic anxiety, that she says runs in her family but says that for her it only began in college and she feels that her anxiety is specific and directed, not free floating. She has only had one panic attack in her life. She denies self injurious behaviors. She denies aud/vis hallucinations. Past Psychiatric History Current OP Treatment: no current treatment Prior OP Treatment: no prior treatment Prior Psych Hospitalizations: none Access to a Gun: No Suicide Attempts: No Past Medication Trials none Past Medical/Surgical History History of Concussion/Seizure: No (1) No chronic problems Allergies Allergies: Coded Allergies: No Known Allergies (Unverified , 08/10/17) Home Medications Scheduled Ibuprofen (Advil), 400 MG PO PRN Multivitamins/Minerals (Mvi With Minerals), 1 TAB PO DAILY Family History History of Suicide: No History of Substance Abuse: No Psychiatric History: Yes (mother anxiety) Alcohol Use Alcohol Use In Past 12 Months: Yes Will drink on Sat and Sun. Denies any legal problems as a result of drinking. Smoking Use Smoking Status: Light Tobacco Smoker Substance History Denies the use of illegal substances Personal History Lives in: [place] while atttending [employer] Childhood: Raised by both parents, has 3 sisters Education: started college Relationship History: never Children: none Legal History: none Psychological Trauma History: Other (recent ) Review of Systems Constitutional: other (fatigue) Eyes: denies: no symptoms, as stated in HPI, eye pain, tearing, itching, redness, discharge, double vision, visual changes, blurred vision, photophobia, other ENT: denies: no symptoms reported, see HPI, ear pain, ear discharge, loss of hearing, tinnitus, nasal pain, nasal congestion, rhinorrhea, epistaxis, sore throat, stidor, throat swelling, mouth pain, mouth swelling, dental pain, gum swelling, other Cardiovascular: denies: no symptoms reported, see HPI, chest pain, chest tightness, chest pressure, diaphoresis, palpitations, syncope, other Respiratory: denies: no symptoms reported, see HPI, cough, orthopnea, short of breath, stridor, wheezing, sputum production, cyanosis, SALAZAR, PND, other Gastrointestinal: denies no symptoms reported, denies see HPI, denies abdominal pain, denies constipation, denies diarrhea, denies nausea, denies vomiting, denies other Genitourinary - Female: denies: no symptoms, see HPI, rash, amenorrhea, dysmenorrhea, menorrhagia, metrorrhagia, , vaginal bleeding, vaginal itching, vaginal discharge, vulvadynia, other Musculoskeletal: denies no symptoms reported, denies see HPI, denies back pain , denies gout, denies joint pain, denies joint swelling, denies muscle pain, denies muscle stiffness, denies neck pain, denies other Integumentary: denies no symptoms reported, denies see HPI, denies change in color, denies change in hair/nails, denies dryness, denies lesions, denies lumps , denies rash, denies other Neurologic: denies: no symptoms, see HPI, headache, numbness, paresthesias, pre -existing deficit, seizure, tingling, tremors, general weakness, tics, focal weakness, vertigo, lethargy, memory loss, dizziness, other Endocrine: Cramping Hematologic / Lymphatic: denies: no symptoms, as stated in HPI, abnormal clotting, adenopathy, anemia, easy bleeding, easy bruising, gums bleeding, petechiae, other Examination Vital Signs Last Vital Signs Documentation Date Time Temp Pulse Resp B/P (MAP) Pulse Ox O2 Delivery O2 Flow Rate FiO2 08/13/17 06:28 36.8 50 16 98/64 89 105/66 Laboratory Results Labs from the medical floor Test 08/10/17 16:06 08/10/17 16:08 08/10/17 17:49 08/10/17 21:24 Urine Color YELLOW Urine Appearance CLEAR Urine pH 6.5 Urine Specific [place] 1.008 Urine Protein NEG Urine Glucose (UA) NEG Urine Ketones NEG Urine Occult Blood NEG Urine Nitrite NEG Urine Bilirubin NEG Urine Urobilinogen NEG Urine Leukocyte Esterase NEG Urine Test POS Urine Opiates Screen NEG Urine Methadone, Qualitative NEG Urine Barbiturates NEG Urine Phencyclidine (PCP) Level NEG Ur Amphetamine/Methamphetamine NEG MDMA (Ecstasy) Screen NEG Urine Benzodiazepines Screen NEG Urine Cocaine Metabolite NEG Urine Marijuana (THC) NEG White Blood Count 12.66 K/uL Red Blood Count 4.98 M/uL Hemoglobin 15.3 g/dL Hematocrit 43.1 % Mean Corpuscular Volume 86.5 fL Mean Corpuscular Hemoglobin 30.7 pg Mean Corpuscular Hemoglobin Concent 35.5 g/dl RDW Standard Deviation 39.4 fL RDW Coefficient of Variation 12.3 % Platelet Count 333 K/uL Mean Platelet Volume 9.7 fL Sodium Level 140 mmol/L 143 mmol/L Potassium Level 3.0 mmol/L 4.1 mmol/L Chloride Level 108 mmol/L 112 mmol/L Carbon Dioxide Level 23 mmol/L 20 mmol/L Anion Gap 10.0 mmol/L 11.0 mmol/L Blood Urea Nitrogen 9 mg/dl 8 mg/dl Creatinine 1.01 mg/dl 1.06 mg/dl Est Creatinine Clear Calc Drug Dose 78.4 ml/min 72.4 ml/min Estimated GFR () 92.2 86.9 Estimated GFR (Non- 79.5 75.0 BUN/Creatinine Ratio 8.9 7.3 Random Glucose 81 mg/dl 87 mg/dl Calcium Level 9.1 mg/dl 8.1 mg/dl Total Bilirubin 0.6 mg/dl 0.2 mg/dl Direct Bilirubin 0.1 mg/dl Aspartate Amino Transf (AST/SGOT) 14 U/L 13 U/L Alanine Aminotransferase (ALT/SGPT) 15 U/L 13 U/L Alkaline Phosphatase 40 U/L 35 U/L Total Protein 7.8 gm/dl 6.8 gm/dl Albumin 4.4 gm/dl 3.8 gm/dl Thyroid Stimulating Hormone (TSH) 1.130 uIu/ml Free Thyroxine 1.22 ng/dl Human Chorionic Gonadotropin, Quant 8480 mIU/mL Salicylates Level < 1.7 mg/dl Acetaminophen Level 57 ug/ml 54 ug/ml Ethyl Alcohol mg/dL 54.7 mg/dl Prothrombin Time 10.7 SECONDS Prothromb Time International Ratio 1.0 Activated Partial Thromboplast Time 22.0 SECONDS Partial Thromboplastin Ratio 0.8 Magnesium Level 2.0 mg/dl Globulin 3.0 gm/dl Albumin/Globulin Ratio 1.3 Test 08/11/17 05:53 08/11/17 05:54 Acetaminophen Level 15 ug/ml White Blood Count 7.13 K/uL Red Blood Count 4.39 M/uL Hemoglobin 13.1 g/dL Hematocrit 38.5 % Mean Corpuscular Volume 87.7 fL Mean Corpuscular Hemoglobin 29.8 pg Mean Corpuscular Hemoglobin Concent 34.0 g/dl Platelet Count 276 K/uL Mean Platelet Volume 9.7 fL Neutrophils (%) (Auto) 64.2 % Lymphocytes (%) (Auto) 26.8 % Monocytes (%) (Auto) 8.0 % Eosinophils (%) (Auto) 0.4 % Basophils (%) (Auto) 0.3 % Neutrophils # (Auto) 4.58 K/uL Lymphocytes # (Auto) 1.91 K/uL Monocytes # (Auto) 0.57 K/uL Eosinophils # (Auto) 0.03 K/uL Basophils # (Auto) 0.02 K/uL RDW Standard Deviation 40.6 fL RDW Coefficient of Variation 12.6 % Immature Granulocyte % (Auto) 0.3 % Immature Granulocyte # (Auto) 0.02 K/uL Sodium Level 141 mmol/L Potassium Level 3.6 mmol/L Chloride Level 112 mmol/L Carbon Dioxide Level 21 mmol/L Anion Gap 8.0 mmol/L Blood Urea Nitrogen 10 mg/dl Creatinine 1.09 mg/dl Est Creatinine Clear Calc Drug Dose 71.1 ml/min Estimated GFR () 84.0 Estimated GFR (Non- 72.5 BUN/Creatinine Ratio 9.5 Random Glucose 79 mg/dl Calcium Level 8.3 mg/dl Magnesium Level 2.3 mg/dl Total Bilirubin 0.4 mg/dl Aspartate Amino Transf (AST/SGOT) 13 U/L Alanine Aminotransferase (ALT/SGPT) 14 U/L Alkaline Phosphatase 31 U/L Total Protein 6.2 gm/dl Albumin 3.2 gm/dl Globulin 3.0 gm/dl Albumin/Globulin Ratio 1.1 Human Chorionic Gonadotropin, Quant 5252 mIU/mL Mental Examination During interview pt is: alert and oriented Appearance: appropriately dressed Eye contact is: good Motor behavior is: no abnormal motor movements Speech: normal in rate, rhythm & volume Affect: depressed, flat Mood is: depressed Thought process: goal directed Thought content: reality based without delusions Suicidal thought are: Denies today, but present prior to admission, Plan: present (overdose) Homicidal thoughts are: denied Hallucinations: denies auditory, denies visual Cognition: memory grossly intact, attention grossly intact, language grossly intact Intelligence estimated to be: average Insight: impaired Judgement: impaired Impression / Recommendations Impression 22 yo woman admitted following a toxic ingestion of ibuprofen and Nyquil in a suicide attempt. She denies depression prior to the breakup and then finding out she was and so does not meet criteria for a major depression. We will not recommend medications but will recommend that she have counseling after discharge, to which she agrees. Family meeting is scheduled with her parents this afternoon. We will focus on safety planning and coping skills. At this time the patient requires inpatient care due to the severity of her attempt and the risk for relapse if discharged. Recommendations (1) mood disorder related to medical condition 08/11 - No medication recommendations - Family meeting this afternoon - Will need therapy post discharge - Assist the patient to learn and utilize healthy coping strategies - Q 15 min checks for safety - Encourage participation in group and individual counseling. Dr. Almita Kennedy has personally been involved in the review of this care and development of these recommendations.
[2017-08-14 06:47] VITALS: BP_SYST 100; BP_SYST 101; BP_DIAS 66; BP_DIAS 67; PULSE 69; PULSE 83; TEMP 36.9
[2017-08-14] MEDS: PANTOprazole SOD 40 MG TAB PO SCH (08:38)
[2017-08-14] MEDS: CEROVITE ADV FORMULA TAB PO SCH (08:38)
--- NOTE | 2017-08-14 09:46 | Psych Management Progress Note ---
Psychiatry Miscellaneous Date of Service: Aug 14, 2017. Patient seen, MS assessed. Rates mood as 10/27. safety plan completed, deciding on whether or not to return home vs finish exams. Benefiting from social support here. I personally participated in the patient's treatment team and today's medical decision making.
--- NOTE | 2017-08-14 10:15 | Discharge Instructions ---
Discharge Information Report Includes Report will include the: Discharge Instructions & Summary Admission Admission Date / Time: Aug 12, 2017 at 17:00 Reason for Admission: Depression Discharge Discharge Diagnosis / Problem: depression Condition at Discharge: Good Discharge Goals Goal(s): Decrease discomfort, Improve disease control Activity Recommendations Activity Limitations: resume your previous activity . Instructions / Follow-Up Instructions / Follow-Up . SPECIAL CARE INSTRUCTIONS: 1. Follow through with your scheduled aftercare appointments. If unable to keep an appointment, please call to reschedule. 2. Take your medication only as prescribed. Medication should not be changed or stopped without the approval of your doctor. In the event of worsening symptoms or concerns about side effects, contact your doctor immediately. 3. Utilize new healthy coping skills, anger management skills, and stress management skills learned during your hospitalization. Journal feelings and process them with a support person. Identify stressors or situations that may result in relapse, deterioration or inappropriate behaviors and develop a plan to deal with those issues. 4. If your coping skills are ineffective and you are in crisis, contact your outpatient providers for direction. If unable to reach your providers, please call the CAN HELP LINE AT or go to the closest Emergency Room. 5. Avoid alcohol and un-prescribed drugs. 6. You have been provided with the Mental Health Advance Directives Pamphlet for your review. AFTERCARE APPOINTMENTS: * Please call your insurance company prior to your scheduled appointment to confirm your aftercare providers are covered. Take your insurance information to your appointments. . Discharge / Aftercare Planning Primary Care Physician: Name: Dr. Robyn Cadena (pediatrics) Appointment Notes: follow up as needed Therapist: Name Of Therapist: Ofe Macias [facility] Date of Appointment: August 19, 2017 Time of Appointment: 1pm Appointment Comments: [id number] Vidhya Zheng PA (forms [employer]) . Follow-Up Care Plan for Follow-Up Care: The patient has a therapy appt next week in [facility] Diet Patient's current hospital diet: Regular Diet Discharge Diet Recommended Diet: Regular Diet Procedures Procedures Performed: No Pending Studies Pending Studies at Discharge: No Medical Emergencies . Who to Call and When: Medical Emergencies: For questions or emergencies related to your hospital stay, please contact the Inpatient Behavioral Health Unit at [phone]. A terrazzo laborer is on-call 10/11 for the Behavioral Health Unit for emergencies At any time you feel your situation is an emergency, you may also call 911 immediately. . Non-Emergent Contact Non-Emergency issues call your: Primary Care Provider, Therapist Advance Directives Existing Advance Directive: No Do You Have an Existing Mental: No Existing Living Will: No Existing Power of Director Consumer Affairs: No Advance Directives Info Given: To Pt/S.O. Advance Directives Reason: Declines as Mental Health Visit. 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 Day of Discharge Assessment COURSE OF HOSPITALIZATION: The patient was initially admitted to the medical floor following an overdose of ibuprofen and NyQuil in a suicide attempt. Her stress emerged recently after a difficult breakup with a boyfriend and having found out several days after that that she was . She proceeded to terminate the and had not told her parents were staunch Catholics. Her mood deteriorated after that termination, and she ended up taking the impulsive overdose. During her medical stay, she did tell her parents about the and termination and they were very supportive. She transferred to the mental health unit when medically stable. We agreed that she did not meet criteria for medications as this was limited to the stressful events of the breakup and the determination. She was very cooperative with treatment, participated in group and individual therapies. She was agreeable to therapy post discharge and an appointment was made in [place] where she will be returning this weekend. She would like to defer her finals given the stress of the last several weeks. She was without suicidal ideation throughout her hospital stays. She worked on a safety plan for use post discharge which ultimately includes returning to the closest emergency room in the event of suicidal thinking or severe worsening of her condition. She has struggled with her ex-boyfriend continuing to contact her which was part of her prehospital stress. She has thought about this during her stay, will block his number, and if he persists in contacting her, she will apply for a PFA. TRANSITION OF CARE: I have personally reviewed the patient's aftercare appointments and counseled her to keep them as scheduled. She is not on any medications other than a multivitamin. DAY OF DISCHARGE ASSESSMENT: Today the patient is requesting discharge. Her mood is significantly improved, she is without suicidal ideation. Her parents have been actively involved in her treatment, attended a family meeting, and she will be going home with them at discharge. She has a therapy appointment on Thursday of next week. Today she is casually and appropriately dressed and groomed. Gait and station are within normal limits. Eye contact is good. Affect is smiling. Speech is of normal rate volume and tone. Thoughts are organized, goal-directed, and without evidence of thought disorder. Recent and remote memory are intact per conversation. Intelligence is estimated to be average. Insight and judgment are improved over admission. Laboratory Were performed while on the medical floor Total Time Total Time Spent (min): Greater than 30 minutes Total Time Included: examination of the patient, discharge planning, medication reconciliation, communication with other providers Tobacco Cessation at Discharge Smoking Status: Never Smoker FDA approved Prescription: non-smoker
== END 2017-08-14 12:02 | disposition home or self-care (01) | DRG 884 ==
LOC: C.MHU 17:00
PROVIDERS: ADMIT Psychiatry & Neurology Psychiatry; ATTEND Psychiatry & Neurology Psychiatry
DX: F06.30 Mood disorder due to known physiological condition, unspecified (principal); Z91.5 Personal history of self-harm; F17.200 Nicotine dependence, unspecified, uncomplicated; Z81.8 Family history of other mental and behavioral disorders